=== PATIENT | female | born 1955 | race African-American/Black ===

== ENCOUNTER 2016-08-27 14:23 | Emergency (ER) | payer OTHER ==
[~2016-08-27] VITALS: Ht 152.4 cm; Wt 81.7 kg
[~2016-08-27 14:23] MED LIST: AMOX TR-K CLV1 EAC4; HYDROCODON-ACE1 EAC7 PO; HYDROCODON-ACE1 EACH; MOTRIN
[2016-08-27 16:35] LABS: MCH 27.3 PG (29.0-34.0); MCHC 32.3 G/DL (30.0-36.0); MCV 84.6 FL (83-99); MEAN PLAT.VOLUME 10.1 uM^3 (9.5-12.4); PLATELET COUNT 204 K/uL (156-360); RBC DIS.WIDTH-CV 13.1 % (11.8-14.6); RBC DIS.WIDTH-SD 40.3 % (39-53); RED BLOOD COUNT 4.73 M/uL (3.80-5.20); WHITE BLOOD COUNT 8.1 K/uL (4.1-10.2)
[2016-08-27 16:44] LABS: CHLORIDE 104 mEq/L (99-109); POTASSIUM 4.1 mEq/L (3.7-5.4); SODIUM 139 mEq/L (136-147)
[2016-08-27 16:46] LABS: GLUCOSE 73 mg/dL (70-99)
[2016-08-27 16:47] LABS: ANION GAP 11 MEQ/L (2-14)
[2016-08-27 16:49] LABS: ALKALINE PHOSPHATASE 64 IU/L (3-129)
[2016-08-27 16:50] LABS: GFR ESTIMATE (CALCULATED) > 59 mL/min/
[2016-08-27 16:51] LABS: UREA NITROGEN (BUN) 9 mg/dL (9-23)
[2016-08-27] MEDS ORDERED: CLEOCIN300 MG PO (20:16)
[2016-08-27] MEDS ORDERED: VALSARTAN-HCTZ1 EAC1 PO (20:40)
[2016-08-27] MEDS ORDERED: METFORMIN HCL500 MG PO (20:40)
[2016-08-27] MEDS ORDERED: LO-DOSE ASPIRIN81 M2 PO (20:41)
[2016-08-27 20:55] VITALS: BP 143/75
== END 2016-08-27 20:57 | disposition home or self-care (01) ==
LOC: EME 14:23
PROVIDERS: Nurse Practitioner Family
DX: K04.7 Periapical abscess without sinus (principal)
CPT/HCPCS: 70491; 80053; 82565; 84520; 85027; 99281; 99285; J1885; J7030